=== PATIENT | female | born 1970 | race Caucasian/White ===

== ENCOUNTER → 2016-07-22 | Outpatient (CLI) | payer BC ==
--- NOTE | 2016-07-23 15:39 | MG ---
HISTORY: SCREENING Comparison: June 09, 2014 and July 13, 2015 FINDINGS: Bilateral CC and MLO projections of the right and left breast were obtained. Heterogeneously dense fibroglandular tissue is seen to be present without suspicious interval change. No significant arch itectural distortion, mass or clustered microcalcifications can be observed to suggest malignancy. No skin thickening or nipple retraction is appreciated. No pathological lymphadenopathy can be kacie ntified. IMPRESSION: NO RADIOGRAPHIC EVIDENCE OF MALIGNANCY. ACR CATEGORY I - NEGATIVE EXAM. FOLLOW-UP EXAM 1 YEAR. Diagnostic CAD was utilized and reviewed. * 0 (ZERO) - ASSESSMENT INCOMPLETE; ADDITIONAL IMAGING IS NEEDED. * / (ONE) - NEGATIVE. * 2/II (TWO) - BENIGN FINDINGS. * 3/III (THREE) - PROBABLY BENIGN FINDING; SHORT INTERVAL FOLLOW-UP SUGGESTED. * 4/IV (FOUR) - SUSPICIOUS ABNORMALITY; BIOPSY SHOULD BE CONSIDERED. * 5/V (FIVE) - HIGHLY SUSPICIOUS OF MALIGNANCY; BIOPSY SHOULD BE PERFORMED. A NEGATIVE X-RAY REPORT SHOULD NOT DELAY BIOPSY IF A DOMINANT OR CLINICALLY SUSPICIOUS MASS IS PRESENT; 4 TO 8 PERCENT OF CANCERS ARE NOT IDENTIFIED BY X-RAY. A NEG ATIVE REPORT MAY REINFORCE THE CLINICAL IMPRESSION. ADENOSIS AND DENSE BREASTS MAY OBSCURE AN UNDER LYING NEOPLASM. Reported By:
== END ==
LOC: RAD 15:06
PROVIDERS: ATTEND Specialist
DX: Z12.31 Encounter for screening mammogram for malignant neoplasm of breast (principal)
CPT/HCPCS: 77067

== ENCOUNTER → 2017-06-26 | Outpatient (CLI) | payer BC ==
[~2017-06-26] MED LIST: NS 100 ML IV 100 ML IV ONE
--- NOTE | 2017-06-26 10:02 | CT ---
HISTORY: Right lower quadrant pain and hematuria Study: CT abdomen and pelvis with and without contrast Comparison: None Technique: Multiple axial images of the abdomen and pelvis were obtained from the lung bases to the pubic symphy sis both prior to and after the administration of IV contrast. Findings: The visualized portions of the lung bases are unremarkable. The liver, spleen, pancreas, kidneys, an d adrenal glands are unremarkable in their CT appearance. Clips are noted within the gallbladder nguyễn a consistent with prior cholecystectomy. No significant mesenteric lymphadenopathy or stranding can be observed. No free fluid or free air is seen within the abdomen. No bowel wall thickening or selena l dilatation is present. The colon is unremarkable. Specifically, there is no diverticulosis noted within the sigmoid colon. Note of an intrauterine device is made within the central endometrium. In a ddition multiple lesions within the myometrium are observed with heterogeneous enhancement most consi stent with multiple leiomyomas. Ultrasound would better characterize these findings. In addition, the right adnexa demonstrates a complex cystic lesion with thick enhancing septations measuring 4.1 x 4. 6 x 6.5 cm. Continued follow-up with transvaginal pelvic ultrasound will be needed for further charac terization. Differential considerations of multiple ovarian cyst, hemorrhagic cyst, cystadenoma or cy st adenocarcinoma should be given for further evaluation. The bony structures are grossly intact. IMPRESSION: The right adnexa demonstrates a loculated complex cystic lesion likely ovarian in origin measuring 4. 1 x 4.6 x 6.5 cm. Given septal enhancement continued evaluation with transvaginal pelvic ultrasound f or complete characterization will be needed with differential considerations detailed above. Heterogeneous enhancement of the myometrium most likely on the basis of multiple indwelling fibroids. A central intrauterine device is incidentally noted. The appendix is unremarkable in its CT appearance. Reported By:
== END ==
LOC: RAD 08:54
PROVIDERS: ATTEND Internal Medicine
DX: R10.11 Right upper quadrant pain (principal); R31.9 Hematuria, unspecified
CPT/HCPCS: 74178; A4222